=== PATIENT | female | born 1970 | race Caucasian/White ===

== ENCOUNTER → 2020-03-01 14:15 | Outpatient (BNVA) | payer BC, SELFPAY | PROVIDERS: Family Provider Family Medicine; PCP Family Medicine; Visit Provider Obstetrics & Gynecology | DX: Z12.4 Encounter for screening for malignant neoplasm of cervix (principal); E03.9 Hypothyroidism, unspecified | CPT/HCPCS: 88175 ==

== ENCOUNTER → 2021-03-03 09:57 | Outpatient (BNVA) | payer BC, SELFPAY | PROVIDERS: Family Provider Family Medicine; PCP Family Medicine; Visit Provider Obstetrics & Gynecology | DX: Z12.4 Encounter for screening for malignant neoplasm of cervix (principal); Z78.9 Other specified health status | CPT/HCPCS: 88175 ==

== ENCOUNTER → 2021-05-09 15:06 | Outpatient (BNVA) | payer BC, SELFPAY | PROVIDERS: Family Provider Family Medicine; PCP Family Medicine; Visit Provider Obstetrics & Gynecology | DX: R87.610 Atypical squamous cells of undetermined significance on cytologic smear of cervix (ASC-US) (principal); R87.810 Cervical high risk human papillomavirus (HPV) DNA test positive; Z01.812 Encounter for preprocedural laboratory examination | CPT/HCPCS: 81025; 88305 ==

== ENCOUNTER → 2021-05-23 11:30 | Outpatient (BNVA) | payer BC, SELFPAY | PROVIDERS: Family Provider Family Medicine; PCP Family Medicine; Visit Provider Obstetrics & Gynecology | DX: R87.613 High grade squamous intraepithelial lesion on cytologic smear of cervix (HGSIL) (principal); Z20.822 Contact with and (suspected) exposure to COVID-19 | CPT/HCPCS: 87635 ==

== ENCOUNTER 2021-05-29 06:45 | Day surgery (SDC) | payer BC, SELFPAY ==
[2021-05-27 08:33] VITALS: BMI 30.4
[2021-05-27 09:14] LABS: Add Urine Microscopic? NO; Charge for UA Resulting for Rev
[2021-05-27 09:20] LABS: Basophils # 0.1 10^3/uL (0.0-0.1); Basophils % 0.8 %; Eosinophils # 0.4 10^3/uL (0.0-0.8); Eosinophils % 6.4 %; Hematocrit 41.8 % (37.0-47.0); Hemoglobin 13.7 g/dL (11.5-15.3); Lymphocytes # 2.2 10^3/uL (0.8-4.8); Lymphocytes % 36.8 %; Mean Corpuscular HGB Conc 32.8 g/dL (30.0-36.0); Mean Corpuscular Hemoglobin 31.6 pg (28.0-34.0); Mean Corpuscular Volume 96.3 fl (81-99); Mean Platelet Volume 9.8 fL (7.4-10.4); Monocytes # 0.5 10^3/uL (0.2-0.9); Monocytes % 7.9 %; Neutrophils # 2.84 10^3/uL (1.8-7.7); Neutrophils % 47.8 %; Nucleated Red Blood Cells % 0 %; Platelet Count 257 10^3/cmm (130-400); Red Blood Count 4.34 10^6/uL (4.1-5.3); Red Cell Distribution Width 12.8 % (12.1-15.1)
[2021-05-27 09:25] LABS: Bilirubin Urine 1+ (Negative); Blood Urine Neg (Negative); Glucose Urine UA Norm (Normal); Ketones Urine Negative (Negative); Leukocyte Esterase Urine Negative (Negative); Nitrate Urine Negative (Negative); Protein Urine Neg (Negative); Specific Gravity, Urine 1.025 (1.005-1.030); Urine Appearance Clear (CLEAR); Urine Color Yellow (Yellow); Urobilinogen Urine Norm (Negative); pH Urine 5 (5-7)
[2021-05-27 09:27] LABS: OR HCG Qualitative Urine Negative (Negative)
[2021-05-27 09:43] LABS: Anion Gap 10.7 (5-19); Blood Urea Nitrogen 16 mg/dL (6-20); Calcium 8.6 mg/dL (8.5-10.5); Carbon Dioxide 28 mmol/L (22-29); Chloride 103 mmol/L (98-107); Creatinine Clr Calc Pharmacy 112.0148; Glomerular Filtration Rate 88.2 mL/min (90-130); Glucose 88 mg/dL (65-115); Osmolality Calculated 287 mOsm/kg (285-295); Potassium 3.7 mmol/L (3.5-5.1); Sodium 138 mmol/L (136-145)
--- NOTE | 2021-05-27 12:00 | P.ANESASSM_ITS ---
Pre-Anesthetic Assessment Pre-Anesthetic Assessment: Height/Weight: Height 1.73 m Weight 90.718 kg Preop Diagnosis: High-grade squamous intraepithelial lesion Proposed Procedure: Operation Date: 05/29/21 08:20 Proposed Procedures p Cold Knife Cone Biopsy 79937 R87.613(Not Applicable) - Lalit Bravo MD Was Beta Juan Alberto taken within 24 hours: Yes Was Clonidine taken within 24 hours: N/A Social: Social History: No alcohol and No tobacco Exam: Pre-Anes Outpt Exam: alert, oriented x 3, clear to auscultation bilaterally and regular rate & rhythm Airway: Submandibular: WNL Cervical ROM: WNL MP: 2 Dentition: Full CV/HEM: CV/HEM: HTN Metabolic: Metabolic: Thyroid Neuropsych: Neuropsych: Depression Anesthetic Plan: ASA status: 2 Anesthesia: General Risk of > 500 ml blood loss (7ml/kg in children): No PFSH Anesthesia PFSH: Medical History (Updated 05/23/21 @ 11:41 by Lalit Bravo MD) ASCUS with positive high risk HPV Family History Mother Thyroid condition Diabetes Breast cancer, Onset Age: 65 Brother Thyroid condition Family/Other Thyroid condition maternal uncle Colon cancer maternal aunt Father Myasthenia gravis, Onset Age: 75 Grandmother Breast cancer maternal, and maternal great grandmother, onset uncertain Denies family history of Clotting disorder Hyperlipidemia Anesthesia complication Bleeding disorder Hypertension Stroke Social History Smoking and tobacco status: never smoked Alcohol intake: current Alcohol intake frequency: holidays/special occasions only Alcohol type: wine Other details last substance use: Denies drug use Data Anesthesia CBC & Chem 7: 05/27/21 08:50 05/27/21 08:50 Other Labs: Laboratory Results - last 48 hr 05/27/21 05/27/21 05/27/21 08:50 08:50 08:50 WBC 6.0 RBC 4.34 Hgb 13.7 Hct 41.8 MCV 96.3 MCH 31.6 MCHC 32.8 RDW 12.8 Plt Count 257 MPV 9.8 Neut % (Auto) 47.8 Lymph % (Auto) 36.8 [place] % (Auto) 7.9 Eos % (Auto) 6.4 Baso % (Auto) 0.8 Neut # (Auto) 2.84 Lymph # (Auto) 2.2 [place] # (Auto) 0.5 Eos # (Auto) 0.4 Baso # (Auto) 0.1 Nucleated RBC % (auto) 0 Nucleated RBCs # 0.0 Sodium 138 Potassium 3.7 Chloride 103 Carbon Dioxide 28 Anion Gap 10.7 BUN 16 Creatinine 0.7 GFR Calculation 88.2 L Glucose 88 Calculated Osmolality 287 Calcium 8.6 Urine Color Urine Appearance Urine pH Ur Specific [place] Urine Protein Urine Glucose (UA) Urine Ketones Urine Blood Urine Nitrate Urine Bilirubin Urine Urobilinogen Ur Leukocyte Esterase Urine HCG, Qual Blood Type O Positive Rho(D) Type Positive Antibody Screen Negative 05/27/21 05/27/21 08:53 08:53 WBC RBC Hgb Hct MCV MCH MCHC RDW Plt Count MPV Neut % (Auto) Lymph % (Auto) [place] % (Auto) Eos % (Auto) Baso % (Auto) Neut # (Auto) Lymph # (Auto) [place] # (Auto) Eos # (Auto) Baso # (Auto) Nucleated RBC % (auto) Nucleated RBCs # Sodium Potassium Chloride Carbon Dioxide Anion Gap BUN Creatinine GFR Calculation Glucose Calculated Osmolality Calcium Urine Color Yellow Urine Appearance Clear Urine pH 5 Ur Specific [place] 1.025 Urine Protein Neg Urine Glucose (UA) Norm Urine Ketones Negative Urine Blood Neg Urine Nitrate Negative Urine Bilirubin 1+ H Urine Urobilinogen Norm Ur Leukocyte Esterase Negative Urine HCG, Qual Negative Blood Type Rho(D) Type Antibody Screen Cardiac Studies: No Data to Display
[2021-05-29 07:12] VITALS: BP 113/70; PULSE 78; RESP 18; TEMP 36.2; O2SAT 98
[2021-05-29 07:17] LABS: OR HCG Qualitative Urine Negative (Negative)
[2021-05-29] MEDS: sodium chloride 0.9% 1,000 ML 30 ML IV (07:25)
[2021-05-29] MEDS: scopolamine 1.5 Patch 1 PATCH TRANSDERMA (08:00)
--- NOTE | 2021-05-29 08:02 | ANES.PAUD2 ---
Pre-Anesthetic Update Pre-Anesthetic Assessment: Date of Surgery/Procedure: 05/29/21 Preop Diagnosis: High-grade squamous intraepithelial lesion Proposed Procedure: Operation Date: 05/29/21 08:20 Proposed Procedures p Cold Knife Cone Biopsy [id number] R87.613(Not Applicable) - Lalit Bravo MD Any changes to Pre-Anesthetic Assessment?: No Last Intake: Intake Last Liquid Date 05/28/21 Last Liquid Time 20:00 Last Solid Date 05/28/21 Last Solid Time 20:00 Labs Last 48hrs: Laboratory Results - last 48 hr 05/27/21 05/27/21 05/27/21 08:50 08:50 08:50 WBC 6.0 RBC 4.34 Hgb 13.7 Hct 41.8 MCV 96.3 MCH 31.6 MCHC 32.8 RDW 12.8 Plt Count 257 MPV 9.8 Neut % (Auto) 47.8 Lymph % (Auto) 36.8 [place] % (Auto) 7.9 Eos % (Auto) 6.4 Baso % (Auto) 0.8 Neut # (Auto) 2.84 Lymph # (Auto) 2.2 [place] # (Auto) 0.5 Eos # (Auto) 0.4 Baso # (Auto) 0.1 Nucleated RBC % (a uto) 0 Nucleated RBCs # 0.0 Sodium 138 Potassium 3.7 Chloride 103 Carbon Dioxide 28 Anion Gap 10.7 BUN 16 Creatinine 0.7 GFR Calculation 88.2 L Glucose 88 Calculated Osmolal ity 287 Calcium 8.6 Urine Color Urine Appearance Urine pH Ur Specific [place] y Urine Protein Urine Glucose (UA) Urine Ketones Urine Blood Urine Nitrate Urine Bilirubin Urine Urobilinogen Ur Leukocyte Maggie ase Urine HCG, Qual Blood Type O Positive Rho(D) Type Positive Antibody Screen Negative 05/27/21 05/27/21 05/29/21 08:53 08:53 07:04 WBC RBC Hgb Hct MCV MCH MCHC RDW Plt Count MPV Neut % (Auto) Lymph % (Auto) [place] % (Auto) Eos % (Auto) Baso % (Auto) Neut # (Auto) Lymph # (Auto) [place] # (Auto) Eos # (Auto) Baso # (Auto) Nucleated RBC % (a uto) Nucleated RBCs # Sodium Potassium Chloride Carbon Dioxide Anion Gap BUN Creatinine GFR Calculation Glucose Calculated Osmolal ity Calcium Urine Color Yellow Urine Appearance Clear Urine pH 5 Ur Specific [place]it y 1.025 Urine Protein Neg Urine Glucose (UA) Norm Urine Ketones Negative Urine Blood Neg Urine Nitrate Negative Urine Bilirubin 1+ H Urine Urobilinogen Norm Ur Leukocyte Maggie ase Negative Urine HCG, Qual Negative Negative Blood Type Rho(D) Type Antibody Screen Vitals: Temperature 97.2 F L 05/29/21 07:12 Temperature Source Temporal Artery S can 05/29/21 07:12 Pulse Rate 78 05/29/21 07:12 Pulse Rhythm 05/29/21 07:13 Pulse Strength 3+ Normal 05/29/21 07:13 Respiratory Rate 18 05/29/21 07:12 Blood Pressure 113/70 05/29/21 07:12 Blood Pressure Ange n 84 05/29/21 07:12 Pulse Oximetry 98 05/29/21 07:12 Oxygen Delivery Me thod 05/29/21 07:13 Exam: Pre-Anes Outpt Exam: alert, oriented x 3, clear to auscultation bilaterally and regular rate & rhythm Cardiac Studies: No Data to Display
--- NOTE | 2021-05-29 08:17 | W.PM.OPSUD ---
Surgery/Procedure H&P Update DATE OF PROCEDURE: May 29, 2021 DATE H&P PERFORMED: 05/23/21 H&P UPDATE INFORMATION: I have reviewed H&P completed within last 30 days, I have examined patient prior to procedure and No changes to prior documentation PREOP DIAGNOSIS: High-grade squamous intraepithelial lesion PLANNED PROCEDURE: Operation Date: 05/29/21 08:20 Proposed Procedures p Cold Knife Cone Biopsy 70348 R87.613(Not Applicable) - Lalit Bravo MD
--- NOTE | 2021-05-29 09:16 | SUR.OPER ---
0.5 monsels used on the cervix by dr ellis
--- NOTE | 2021-05-29 09:19 | P.OP_ITS ---
Operative Report Date of procedure: May 29, 2021 Pre-op Diagnosis: High-grade squamous intraepithelial lesion Post-op diagnosis: same Post-op Findings: normal cervix Procedure Done: excisional cone biopsy via LEEP Specimens removed/disposition: Cervix excisional cone biopsy Surgeon: Lalit Bravo MD Anesthesia: MAC Estimated blood loss (mL): 10 IV fluids (mL): 900 Urine output (mL): 0 Condition: stable Disposition: PACU Procedure: After informed consent, the patient was taken to the operating room where general anesthesia was administered without difficulty. After administration of general anesthesia, the patient was placed in the dorsal lithotomy position, and prepped and draped in the usual sterile fashion. A time-out procedure was performed. The patient was examined under anesthesia and found to have a normal uterus with normal adnexa. A weighted speculum was then placed in the patient's vagina and the anterior lip of the cervix grasped with the singed toothed tenaculum A uterine sound was then advanced into the cervix to determine its direction and length. The decending cervical branchs of the uterine arteries were ligated with 2-0 Vicryl bilaterally at the level of the internal os. The paracervical area was then circumferentially infiltrated using Lidocaine 1% with epinephrine. A small EBIQUOUS Cone Biopsy Excisor was used to cut the cone biopsy in circular fashion and following removal of the specimen a suture was placed at the 12 o?clock location and fixed in formalin. The [place] suture was placed with 3-o vicryl suture and monsel solution was applied. Bleeding was minimal. The patient tolerated the procedure well, sponge, lap and needle counts were correct times two She was taken to the recovery room in good condition.
[2021-05-29 09:25] VITALS: BP 132/96; PULSE 65; RESP 16; TEMP 36.5; O2SAT 95
[2021-05-29 09:30] VITALS: BP 134/86; PULSE 65; RESP 18; O2SAT 93
[2021-05-29 09:34] VITALS: BP 116/83; PULSE 70; RESP 18; TEMP 36.4; O2SAT 94
[2021-05-29 09:39] VITALS: BP 113/78; PULSE 72; RESP 18; TEMP 36.2; O2SAT 94
[2021-05-29 10:00] VITALS: BP 112/70; PULSE 70; RESP 18; O2SAT 95
--- NOTE | 2021-05-29 13:56 | ANE.PACU2 ---
Inpatient post-anesthesia follow up: Airway intact: Yes Vital signs: Temperature 97.1 F Pulse Rate 70 Respiratory Rate 18 Blood Pressure 112/70 Pulse Oximetry 95 Oxygen Delivery Me thod Room Air Oxygen Flow Rate Fraction of Inspir ed Oxygen Hydration adequate: Yes Nausea and vomiting: No Pain level: 2 Mental status: Baseline
== END 2021-05-29 10:22 | disposition home or self-care (01) ==
PROVIDERS: PCP Family Medicine; Visit Provider Obstetrics & Gynecology
PROC: 0UB97ZZ Excision of Uterus, Via Natural or Artificial Opening (ICD-10-PCS; CPT 57520; principal; 2021-05-29 08:10)
DX: R87.613 High grade squamous intraepithelial lesion on cytologic smear of cervix (HGSIL) (principal); I10 Essential (primary) hypertension
CPT/HCPCS: 57522; 36415; 80048; 81003; 81025; 84703; 85025; 86850; 86900; 88307; 96365; J1885; J2704; J3010; J7030

== ENCOUNTER 2022-08-14 13:30 | Outpatient (CLI) | payer BC, SELFPAY ==
--- NOTE | 2022-08-14 13:43 | MM_ITS ---
WS: [id number] BILATERAL 3D TOMOSYNTHESIS DIGITAL SCREENING MAMMOGRAPHY WITH CAD CLINICAL INFORMATION: SCREENING HISTORY: Screening mammogram. LEFT breast pain COMPARISON: 2020 TECHNIQUE: Bilateral CC and MLO views. FINDINGS: Bilateral saline implants appear intact and unchanged from previous. Scattered fibroglandular densities bilaterally. Clustered punctate calcifications upper outer LEFT br east not definitely visualized on the prior studies. Recommend further evaluation with spot magnifica tion views. RIGHT breast is unremarkable. MM/[id number] IMPRESSION: BI-RADS: 0-Incomplete: Need additional imaging evaluation FOLLOW UP: Need Additional Imaging Recommend spot magnification views of the clustered punctate calcifications upp er outer LEFT breast. These are best seen on the MLO view (C-view)
== END 2022-08-14 13:31 | disposition home or self-care (01) ==
PROVIDERS: PCP Family Medicine; Visit Provider Family Medicine
DX: Z12.31 Encounter for screening mammogram for malignant neoplasm of breast (principal)
CPT/HCPCS: 77063; 77067

== ENCOUNTER 2022-09-11 09:58 | Outpatient (CLI) | payer BC, SELFPAY ==
--- NOTE | 2022-09-11 10:05 | MM_ITS ---
WS: [id number] LEFT 3D TOMOSYNTHESIS DIGITAL MAMMOGRAPHY WITH CAD CLINICAL INFORMATION: ABNORMAL MAMMO HISTORY: Calcifications COMPARISON: August 14, 2022 TECHNIQUE: 3 views of the left breast were obtained. FINDINGS: Scattered fibroglandular densities of the left breast. Cluster of punctate amorphous calcifications i n the posterior LEFT breast is again visualized. These are indeterminant and recommend further evalua tion with stereotactic guided biopsy. Note stereotactic guided biopsy positioning may be difficult due to breast implants and posterior dep th of calcifications. No other suspicious findings. MM/[id number] IMPRESSION: BI-RADS: 4-Suspicious Finding-Biopsy Should Be Considered FOLLOW UP: Stereotactic Biopsy Recommended Recommend stereotactic guided biopsy for further evaluation.
== END 2022-09-11 09:59 | disposition home or self-care (01) ==
PROVIDERS: PCP Family Medicine; Visit Provider Family Medicine
DX: R92.8 Other abnormal and inconclusive findings on diagnostic imaging of breast (principal); R92.1 Mammographic calcification found on diagnostic imaging of breast
CPT/HCPCS: 77061; G0279